=== PATIENT | female | born 1975 | race Asian ===

== ENCOUNTER 2016-10-22 06:45 | Emergency (ER) | payer OTHER ==
[2016-10-22 07:29] LABS: microscopic required? YES; urine erythrocyte 3+ (NEGATIVE)
[2016-10-22 07:44] VITALS: BP 136/80
== END 2016-10-22 07:44 | disposition home or self-care (01) ==
LOC: ED 06:45
PROVIDERS: Emergency Medicine
DX: N39.0 Urinary tract infection, site not specified (principal)
CPT/HCPCS: J0696